=== PATIENT | female | born 1965 | race Caucasian/White ===

== ENCOUNTER → 2020-11-12 | Outpatient (CLI) | payer BC ==
[~2020-11-12] MED LIST: PRINZIDE 25 MG-1 TAB PO; SYNTHROID0.1 MG/TAB PO; XANAX 0.5MG0.5 MG PO
== END ==
LOC: MC.RAD 14:35
DX: Z12.31 Encounter for screening mammogram for malignant neoplasm of breast (principal)

== ENCOUNTER → 2021-01-06 | Outpatient (CLI) | payer BC | LOC: COL.RAD 11:30 | DX: R10.11 Right upper quadrant pain (principal) | CPT/HCPCS: A9537; J2805 ==

== ENCOUNTER → 2024-06-14 | Outpatient (CLI) | payer OTHER ==
[~2024-06-14] MED LIST changes: +CARAFATE 1GM1 G PO; +NORCO 325 MG-51 TAB PO
== END ==
LOC: MC.RAD 14:27
DX: Z12.31 Encounter for screening mammogram for malignant neoplasm of breast (principal)